=== PATIENT | female | born 1955 | race Caucasian/White ===

== ENCOUNTER 2018-11-28 13:54 | Emergency (ER) | payer OTHER ==
[~2018-11-28] VITALS: Ht 165.1 cm; Wt 100.0 kg
--- NOTE | 2018-11-28 14:10 | NUR ---
TASK RN - PT BIB EMS FOR SYNCOPAL EPISODE AT [facility]. PT STATES SHE DRANK "A LOT" LAST NIGHT AT A [employer]. 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 PT DENIES ANY HEAD OR NECK PAIN AND HAS NO VISABLE SIGNS OF TRAUMA. PT IS RESTING ON GURNEY, CALL LIGHT IN REACH. CP MONITORS IN PLACE. SBAR HANDOFF REPORT TO SAM TREJO.
[2018-11-28 14:23] LABS: BASOPHILS # (AUTO) 0.03 x10^3/uL (0-0.1); BASOPHILS % (AUTO) 1 % (0-1); EOSINOPHILS # (AUTO) 0.12 x10^3/uL (0-0.4); EOSINOPHILS % (AUTO) 2 % (1-7); LYMPHOCYTES % (AUTO) 35 % (22-44); MD NO; MEAN CORPUSCULAR HEMOGLOBIN 29.2 pg (27.0-34.8); MEAN CORPUSCULAR HGB CONC 32.9 g/dL (32.4-35.8); MEAN CORPUSCULAR VOLUME 88.9 fL (80-100); MEAN PLATELET VOLUME 8.6 fL (7.4-10.4); MONOCYTES # (AUTO) 0.49 x10^3/uL (0.2-0.8); MONOCYTES % (AUTO) 10 % (2-9); NEUTROPHILS # (AUTO) 2.67 x10^3/uL (1.8-6.8); NEUTROPHILS % (AUTO) 52 % (42-75); PLATELET COUNT 259 x10^3/uL (130-400); RED BLOOD COUNT 3.89 x10^6/uL (3.82-5.3); RED CELL DISTRIBUTION WIDTH 14.8 % (9.6-15.2)
[2018-11-28] MEDS ORDERED: SODIUM CHLORIDE FLUSH 10ML SYR IVF ONE (14:30)
[2018-11-28] MEDS ORDERED: SODIUM CHLORIDE 0.9% 1,000ML IVBOLUS ONE (14:30)
[2018-11-28] MEDS ORDERED: ONDANSETRON 2MG/ML, 2ML ONE (14:30)
[2018-11-28 14:45] LABS: ALANINE AMINOTRANSFERASE 39 U/L (12-78); ALBUMIN 3.6 g/dL (3.4-5.0); ANION GAP 9 mmol/L (5-15); CALCIUM 8.7 mg/dL (8.5-10.1); CHLORIDE 107 mmol/L (98-107); CREATININE 1.46 mg/dL (0.55-1.02)
[2018-11-28 14:48] LABS: ALKALINE PHOSPHATASE 13 U/L (45-117); BILIRUBIN,TOTAL 0.1 mg/dL (0.2-1.0)
[2018-11-28] MEDS ORDERED: ONDANSETRON 2MG/ML, 2ML IVPush ONE (15:00)
[2018-11-28 15:16] VITALS: BP 105/64
--- NOTE | 2018-11-28 16:00 | NUR ---
Patient/Caregiver given discharge instructions and they have confirmed that they understand the instructions. Patient ambulatory with steady gait.
== END 2018-11-28 16:11 | disposition home or self-care (01) ==
LOC: ED 13:57
DX: R55 Syncope and collapse (principal); I10 Essential (primary) hypertension; E78.00 Pure hypercholesterolemia, unspecified; R11.0 Nausea
CPT/HCPCS: 36415; 80053; 83690; 85025; 93005; 96374; 99284; J2405; J7030